=== PATIENT | male | born 1975 | race Two or more races ===

== ENCOUNTER 2024-06-05 12:23 | Emergency (ER) | payer MEDICAID, OTHER ==
[~2024-06-05] VITALS: Ht 165.1 cm; Wt 100.9 kg
--- NOTE | 2024-06-05 13:44 | DVH ---
EXAM: CT HEAD WITHOUT CONTRAST HISTORY: MARTINO COMPARISON: None TECHNIQUE: Axial images of the head were obtained and reformatted in coronal and sagittal planes. All CT scans at this medical facility are performed using dose modulation techniques as appropriate t o a performed exam including the following: Automated exposure control was utilized; adjustment of th e MA and/or KV according to patient size; and use of iterative reconstruction technique. CT Dose: CTDI volume is 56.4 mGy. Dose-length product is 998.61 mGy*cm FINDINGS: There is no evidence of acute intracranial hemorrhage, mass, mass effect midline shift. There is no h ydrocephalus or extra-axial fluid collection. Hernandez-white matter differentiation is maintained. The visualized paranasal sinuses and mastoid air cells are clear. The calvarium is intact. IMPRESSION: 1. No acute intracranial process. HS:Y
[2024-06-05] MEDS ORDERED: IBUP-1454 PO (14:14)
--- NOTE | 2024-06-05 14:14 | ED.PDOC ---
HPI (NEURO) HPI Comments 48 year old presents for a unilateral headache to the right temporal area x 2 weeks Pain persistent Pain described as squeezing pressure Pain rated 8/10 Tried IBU 400 mg Denies fever, chills, night sweats Denies persistent nausea Denies vomiting Denies thunderclap headache Denies photophobia, phonophobia Denies head trauma around the time headache started Denies family history of brain issues persistent headaches Denies taking any blood thinner medication Denies vision/hearing changes Denies focal loss of strength/sensation or changes in speech Chief Complaint: Headache Time Seen by MD: 13:15 Reviewed Notes: Nurses Notes, Medications, Allergies Information Source: Patient Mode of Arrival: Ambulatory Family History Family History: Reviewed,noncontributory to illness Social History Smoker: Non-Smoker Alcohol: Denies ETOH Use Drugs: Denies Drug Use All Other Systems: Reviewed and Negative (Per HPI) Physical Exam General Appearance: No Apparent Distress, Normal HEENT: Head (Normocephalic atraumatic), Normal ENT Inspection, Pharynx Normal, TMs Normal Neck: Full Range of Motion, Non-Tender, Normal, Normal Inspection Respiratory: Chest Non-Tender, Lungs Clear, No Accessory Muscle Use, No Respiratory Distress, Normal Breath Sounds Cardiovascular: No Murmur, No Gallop, Regular Rate/Rhythm Breast Exam: Deferred Gastrointestinal: No Organomegaly, Non Tender, No Pulsatile Mass, Normal Bowel Sounds, Soft Genitalia: Deferred Pelvic: Deferred Rectal: Deferred Extremities: No calf tenderness, Normal capillary refill, Normal inspection, Normal range of motion, Non-tender, No pedal edema Musculoskeletal : Apperance: Normal Neurologic: Alert, interlocking and signal mechanic II-XII nml as Tested, No Motor Deficits, Normal Affect, Normal Mood, No Sensory Deficits Cerebellar Function: Normal Reflexes: Normal Skin: Dry, Normal Color, Warm Lymphatic: No Adenopathy Was a procedure done? Was a procedure done?: No Differential Diagnosis (SZ) Headache: Cluster, Migraine, Closed Head Injury X-Ray, Labs, Meds, VS Vital Signs Date Time Temp Pulse Resp B/P (MAP) Pulse Ox O2 Delivery O2 Flow Rate FiO2 06/05/24 14:17 80 20 99 Room Air 06/05/24 14:17 98.3 80 20 120/74 (89) 99 98.3 06/05/24 12:45 98.3 83 18 123/86 (98) 98 Current Medications Medications (Trade) Dose Ordered Sig/Harinder Route Start Time Stop Time Status Last Admin Ketorolac Tromethamine (Toradol Injection) 60 mg ONCE ONCE IM 06/05/24 14:15 06/05/24 14:17 DC 06/05/24 14:35 Diphenhydramine HCl (Benadryl Injection) 12.5 mg ONCE ONCE IM 06/05/24 14:15 06/05/24 14:17 DC 06/05/24 14:35 Prochlorperazine Edisylate (Compazine Inj) 10 mg ONCE ONCE IM 06/05/24 14:15 06/05/24 14:17 DC 06/05/24 14:34 PATIENT: LOBO DE DIOS ACCT: [id number] UNIT: [id number] : 1975 LOC: ER ROOM / BED: / AGE / SEX: 48 / M ADM STATUS: REG ER SERVICE [id number] ORDERING PHYSICIAN: DEBBY KUMAR NP PROCEDURE(s): HWOCT - HEAD WITHOUT CONTRAST REASON: ORDER NUMBER(s): [id number], ACCESSION NUMBER(s): [id number] EXAM: CT HEAD WITHOUT CONTRAST HISTORY: MARTINO COMPARISON: None TECHNIQUE: Axial images of the head were obtained and reformatted in coronal and sagittal planes. All CT scans at this medical facility are performed using dose modulation techniques as appropriate to a performed exam including the following: Automated exposure control was utilized; adjustment of the MA and/or KV according to patient size; and use of iterative reconstruction technique. CT Dose: CTDI volume is 56.4 mGy. Dose-length product is 998.61 mGy*cm FINDINGS: There is no evidence of acute intracranial hemorrhage, mass, mass effect midline shift. There is no hydrocephalus or extra-axial fluid collection. Hernandez-white matter differentiation is maintained. The visualized paranasal sinuses and mastoid air cells are clear. The calvarium is intact. IMPRESSION: 1. No acute intracranial process. HS:Y ATED BY: MOR AGUIRRE MD DICTATED DATE/TIME: 06/05/24 1343 SIGNED BY: MOR AGUIRRE MD SIGNED DATE/TIME: 06/05/24 6394 CC: X-Ray, Labs, Meds, VS Comment History consistent with no acute bleed Patient complains of unilateral, throbbing, pulsating headache without aura Patient complains of pressing or tightening nonpulsatile headache, headache is not aggravated by activity Imaging ordered, read by radiologist and reviewed by me. Low concern for meningitis as there are no signs of fever, altered mentation nor neck stiffness. Low concern for subarachnoid hemorrhage there are no signs of a thunderclap headache Low concern for subdural hematoma and intracranial hemorrhage as there is no history of trauma, progressively worsening headache and neuroexam is unremarkable. Low suspicion for brain tumor as neuroexam is unremarkable. No nausea vomiting. No morning or nocturnal headache. No suspicion for temporal arteritis as there are no signs of fever, muscle weakness, jaw claudication, no transient visual loss. Counseled to start headache diary Recommended headache elimination diet Avoid prolonged periods of fasting Drink plenty of water Exercise daily, limit screen time Aim to sleep 8 to 9 hours per night, practice good hygiene ED precautions given Patient is aware that the purpose of this visit was for an acute medical emergency requiring emergent stabilization. Chronic conditions, including malignancies have not been ruled out. Patient is instructed to follow up with PCP as directed and discharge instructions for continued care and workup. If unable to arrange follow-up, patient is to return to the emergency department for reassessment. Patient (parent or legal guardian if applicable) was given verbal and written discharge instructions and acknowledges understanding. Time of 1ST Reevaluation: 14:00 Reevaluation 1ST: Improved Patient Education/Counseling: Diagnosis, Treatment Family Education/Counseling: Diagnosis, Treatment Departure 1 Departure Time of Disposition: 14:13 Impression: Primary Impression: Migraine Qualified Codes: G43.909 - Migraine, unspecified, not intractable, without status migrainosus Disposition: HOME / SELF CARE / HOMELESS Condition: Stable e-Prescriptions Ibuprofen (Ibuprofen) 600 Mg Tab 1 TAB PO TID for 10 Days, #30 TAB 0 Refills Prov: DEBBY KUMAR NP 06/05/24 Discharged With: Self Critical Care Note Critical Care Time?: No Stability Stability form required: No Heart Score Heart Score: Heart Score Response (Comments) Value History N/A 0 EKG N/A 0 Age N/A 0 Risk Factors N/A 0 Troponin N/A 0 Total 0 DEBBY KUMAR NP Jun 05, 2024 14:14
[2024-06-05 14:17] VITALS: BP 120/74; PULSE 80; RESP 20; TEMP 98.3; O2SAT 99
[2024-06-05] MEDS: PROCHLORPERAZINE EDISYLATE 5 MG/ML 2ML VIAL IM ONE (14:34)
[2024-06-05] MEDS: KETOROLAC TROMETH 60MG/2ML VIAL IM ONE (14:35)
[2024-06-05] MEDS: diphenhdrAMINE HCL 50 MG/1 ML VL IM ONE (14:35)
== END 2024-06-05 14:37 | disposition home or self-care (01) ==
LOC: ER 12:28
DX: G43.909 Migraine, unspecified, not intractable, without status migrainosus (principal)
CPT/HCPCS: 70450; 96372; 99285; J0780; J1200; J1885